=== PATIENT | female | born 1945 | race Caucasian/White ===

== ENCOUNTER → 2016-11-06 | Outpatient (CLI) | payer OTHER ==
--- NOTE | 2016-11-06 09:24 | MA ---
Bilateral Digital Screening Mammography Clinical History: 71-year-old female with no reported family history of breast cancer, who presents f or routine annual mammographic screening. Technique: Digital CC and MLO views of each breast are compared with previous studies dated September 27, 2015, November 21, 2013, July 01, 2012, September 02, 2010, and August 08, 2009. A cutaneous mar ker has been placed over a mole on the skin surface of the right breast. [facility]. Breast Density: Type B. CAD Evaluation: Negative. Findings: There is a moderately dense heterogeneous residual fibroglandular pattern. There is an area of equivocal architectural change in the central medial right breast seen on the craniocaudal view. It is challenging to appreciate a similar finding in the orthogonal plane. A spot compression view, r olled medial and rolled lateral craniocaudal views, and true mediolateral view are suggested for furt her assessment. There are no suspicious clustered microcalcifications. Numerous benign-appearing axil samson lymph nodes are seen. Impression: Equivocal architectural distortion in the central medial right breast. BI-RADS Category: 0, incomplete. Recommendation: Supplementary spot compression views, as above indicated.
== END ==
LOC: BMCIMAGING 08:08
DX: Z12.31 Encounter for screening mammogram for malignant neoplasm of breast (principal); R92.8 Other abnormal and inconclusive findings on diagnostic imaging of breast
CPT/HCPCS: G0202

== ENCOUNTER → 2016-11-11 | Outpatient (CLI) | payer OTHER ==
--- NOTE | 2016-11-11 18:39 | MA ---
Diagnostic Digital Right Breast Mammogram, November 11, 2016 HISTORY: Abnormal screening right breast mammogram November 06, 2016. TECHNIQUE: Spot compression CC, mediolateral, and rolled craniocaudal mammograms of the right breast are obtained. FINDINGS: The area of parenchymal asymmetry and possible architectural distortion resolves completely on the additional mammographic views obtained, compatible with superimposed fibroglandular tissue. N o persistent mass identified. IMPRESSION: Negative additional mammographic views, right breast. BI-RADS 1. Recommendation: Routine annual screening mammography.
== END ==
LOC: BMCIMAGING 12:21
DX: Z12.39 Encounter for other screening for malignant neoplasm of breast (principal); R92.2 Inconclusive mammogram
CPT/HCPCS: G0206

== ENCOUNTER → 2017-02-23 | Outpatient (CLI) | payer OTHER | LOC: BMCIMAGING 10:10 | PROVIDERS: ATTEND Podiatrist Foot & Ankle Surgery | DX: M19.90 Unspecified osteoarthritis, unspecified site (principal) ==

== ENCOUNTER → 2017-11-22 | Outpatient (CLI) | payer OTHER | LOC: BMCIMAGING 14:51 | PROVIDERS: ATTEND Nurse Practitioner Adult Health | DX: Z12.31 Encounter for screening mammogram for malignant neoplasm of breast (principal) ==

== ENCOUNTER → 2018-06-24 | Outpatient (CLI) | payer OTHER | LOC: FIMAGING 10:38 | PROVIDERS: ATTEND Internal Medicine | DX: Z13.820 Encounter for screening for osteoporosis (principal); M81.0 Age-related osteoporosis without current pathological fracture; Z78.0 Asymptomatic menopausal state ==

== ENCOUNTER → 2018-11-22 | Outpatient (CLI) | payer OTHER | LOC: BMCIMAGING 08:45 | PROVIDERS: ATTEND Podiatrist Foot & Ankle Surgery | DX: M85.472 Solitary bone cyst, left ankle and foot (principal); M79.81 Nontraumatic hematoma of soft tissue ==

== ENCOUNTER → 2018-12-30 | Outpatient (CLI) | payer OTHER | LOC: FIMAGING 10:46 | PROVIDERS: ATTEND Podiatrist Foot & Ankle Surgery | DX: M19.072 Primary osteoarthritis, left ankle and foot (principal); M85.672 Other cyst of bone, left ankle and foot; M76.72 Peroneal tendinitis, left leg; M76.822 Posterior tibial tendinitis, left leg ==

== ENCOUNTER → 2019-04-18 | Outpatient (CLI) | payer OTHER | LOC: FIMAGING 14:03 ==